=== PATIENT | male | born 1945 | race American Indian/Alaskan Native ===

== ENCOUNTER 2016-08-30 07:10 | Day surgery (SDC) | payer MEDICARE, OTHER ==
[2016-08-23 11:21] VITALS: BMI 32.5
[2016-08-30] MEDS ORDERED: Iohexol 240 (50 ml) ONE (07:27)
[2016-08-30] MEDS ORDERED: cefTRIAXone IV 1 gm in Dextros 50 ML IVPB ONE (07:27)
[2016-08-30] MEDS ORDERED: Lidocaine 2% Jelly (Uro-Jet) ONE (07:28)
[2016-08-30] MEDS ORDERED: Lactated Ringer's 1,000 ML IV ONE (07:55)
[2016-08-30] MEDS ORDERED: Propofol 10 mg/ml Inj (20 ML) ONE ×2 (07:57)
[2016-08-30] MEDS ORDERED: Midazolam 2 MG/2 ML VIAL ONE (07:57)
--- NOTE | 2016-08-30 08:41 | PCM.SURG1 ---
Surgeon's Initial Post Op Note - Surgeon's Notes Surgeon: chula khalil Cripple Chaser: none Pre-Operative Diagnosis: hx of bladder ca Operative Findings: abnormal mucosa in bladder and prostate Post-Operative Diagnosis: same Operation Performed: cysto. bilat rtg pyelogram. bladder bx's and fulg. prostatic urethral bx and fulg. eua Specimen/Specimens Removed: urine,. bladdr bx, prostatic urethral bx Estimated Blood Loss: EBL {In ML}: 0 Blood Products Given: N/A Drains Used: No Drains Date of Surgery/Procedure: 08/30/16 Time of Surgery/Procedure: 08:30
[2016-08-30] MEDS ORDERED: HYDROmorphone 0.5 mg/0.5 ml ISec IVP PRN (08:42)
[2016-08-30] MEDS ORDERED: Lactated Ringer's 1,000 ML IV SCH (08:45)
[2016-08-30 09:48] VITALS: RESP 16; O2SAT 99
[2016-08-30 10:42] VITALS: BP 124/60; PULSE 77; TEMP 97.5
--- NOTE | 2016-08-31 12:51 | RAD ---
PROCEDURE: Fluoroscopy up to 1 hr. HISTORY: BLADDER TUMOR COMPARISON: None TECHNIQUE: Standard FINDINGS: Submitted images from the current procedure: 10.0 IMPRESSION: Less than 1 hr fluoroscopic time utilized during performance of the procedure.
--- NOTE | 2016-08-31 12:57 | RAD ---
HISTORY: BLADDER TUMOR COMPARISON: 05/17/2016. FINDINGS: BOWEL: Normal. No obstruction. No free air. BONES: Normal. OTHER FINDINGS: [place] seeds related to brachytherapy identified in the prostate. IMPRESSION: No significant interval change compared to the prior examination(s).
--- NOTE | 2016-09-01 06:58 | OP ---
PROCEDURE DATE: 08/30/2016 UROLOGY OPERATIVE REPORT PREOPERATIVE DIAGNOSES: History of bladder carcinoma. History of prostate carcinoma. POSTOPERATIVE DIAGNOSES: History of bladder carcinoma. History of prostate carcinoma. Abnormal maria del carmen dder mucosa and prostatic urethral mucosa. PROCEDURE: Cystoscopy. Bilateral retrograde pyelogram. Multiple bladder biopsies and fulguration. Prostatic urethral biopsy and fulguration. Exam under anesthesia. DESCRIPTION OF PROCEDURE: The patient was placed in lithotomy position. Anesthesia was provided by the anesthesiologist. Genitalia was prepped and draped sterilely. The patient received perioperativ e antibiotics. A 22-Guy[place] cystoscope sheath was introduced under direct vision. The procedure was performed under video endoscopic control, as well as under fluoroscopic control. The urethra, prostate, and bladder were inspected with 30-degree and 70-degree lenses. FINDINGS: There was no stricture of the anterior urethra. There was evidence of mild prostatic hype rtrophy, which was subocclusive. There was abnormal mucosa involving the prostatic urethra at the bl adder neck and the lateral wall. The bladder was inspected. There was mild bladder trabeculation. There was no bladder tumor. There was no bladder stone. The ureteral orifices were normal in shape and were mildly closer than expect ed to the bladder neck. The bladder was noted to be trabeculated. There was no bladder stone. There are multiple areas of abnormal bladder mucosa. Some were reddened. Some were granular and sli ghtly raised. There was no typical bladder tumor. The areas of abnormal bladder mucosa were biopsied using cold cup biopsy forceps. Each site was labe led and sent separately for pathologic examination. Fulguration was performed with ball electrode an d electrocautery. The area of the abnormal mucosa, involving the prostatic urethra, was similarly biopsied with cold cu p biopsy forceps. Fulguration was performed with ball electrode and electrocautery. The bladder was reinspected with 70-degree lens and confirmed the above findings. Prior to the performance of the biopsies, a retrograde ureteropyelogram was performed. Iodinated con trast dye was instilled via cone-tipped catheter into each ureteral orifice. The kidneys and the ure ters were viewed sequentially. The right retrograde pyelogram was normal without evidence of filling defect or obstruction. The left retrograde pyelogram demonstrated some mild scalloping and mild dilation of the distal urete r. There was no hydronephrosis. There was good drainage on the post-drainage film. The bladder was drained. Cystoscope and sheath were removed. Exam under anesthesia/bimanual examination was performed. There was no abnormal pelvic mass fixation or induration. The patient was returned to the supine position. The patient tolerated the procedure without complication. Sherie Emerson MD cc: [id number] TT: 08/31/2016 08:41:04 jn
== END 2016-08-30 10:56 | disposition home or self-care (01) ==
LOC: C.SDS 07:10
PROVIDERS: ATTEND Urology
DX: N32.89 Other specified disorders of bladder (principal); N36.8 Other specified disorders of urethra; N40.0 Benign prostatic hyperplasia without lower urinary tract symptoms; Z85.46 Personal history of malignant neoplasm of prostate; Z85.51 Personal history of malignant neoplasm of bladder
CPT/HCPCS: 52204; 55899; 74000; 76000; 87086; 88104; 88305; 88342; C1758; J0696; J7120

== ENCOUNTER 2017-08-15 06:50 | Day surgery (SDC) | payer MEDICARE ==
[2016-08-23 11:33] VITALS: BMI 32.5
[2017-08-15] MEDS ORDERED: cefTRIAXone 1 gm 1 GM/100 ML BAG IVPB ONE (09:20)
[2017-08-15] MEDS ORDERED: Lactated Ringer's 1,000 ML IV ONE (09:20)
[2017-08-15] MEDS ORDERED: Lidocaine 2% Jelly (Uro-Jet) ONE (09:21)
[2017-08-15] MEDS ORDERED: Iohexol 240 (50 ml) ONE (09:21)
[2017-08-15] MEDS ORDERED: Propofol 10 mg/ml Inj (20 ML) ONE (09:25)
[2017-08-15] MEDS ORDERED: Midazolam 2 MG/2 ML VIAL ONE (09:25)
[2017-08-15] MEDS ORDERED: Dexamethasone 4 mg/1 ml IVP PRN (10:15)
[2017-08-15] MEDS ORDERED: HYDROmorphone 0.5 mg/0.5 ml ISec IVP PRN (10:15)
--- NOTE | 2017-08-15 11:44 | PCM.SURG1 ---
Surgeon's Initial Post Op Note - Surgeon's Notes Surgeon: Mansi Emerson Telemetry Technician: none Type of Anesthesia: General LMA Pre-Operative Diagnosis: Hx of bladder ca, hx of prostate ca Operative Findings: abnormal mucosa in prostatic urethra Post-Operative Diagnosis: same Operation Performed: cystl. bilat rtg pyelogram. TUR-bx of prostatic urethra Specimen/Specimens Removed: urine. prostatic urethral bx Estimated Blood Loss: EBL {In ML}: 0 Blood Products Given: N/A Post-Op Condition: Good Date of Surgery/Procedure: 08/15/17 Time of Surgery/Procedure: 10:30
[2017-08-15 12:22] VITALS: BP 139/84; PULSE 80; RESP 20; TEMP 97.7; O2SAT 97
--- NOTE | 2017-08-15 18:00 | RAD ---
PROCEDURE: Intraoperative Fluoroscopy. HISTORY: HX BLADDER CA FINDINGS: Fluoroscopic assistance was provided for cystography. Please refer to the operative report from Dr. ALVAREZ, [place]. Total fluoroscopic time (continuous mode) utilized during the procedure 12.7 (seconds). Total exam DLP: (mGy) 2.15
--- NOTE | 2017-08-16 14:17 | RAD ---
PROCEDURE: Retrograde study, unilateral right-sided HISTORY: BLADDER CA COMPARISON: None TECHNIQUE: Standard protocol for this study/examination. FINDINGS: Submitted images from the current procedure: 2.0 IMPRESSION: Less than 1 hr fluoroscopic time utilized during performance of the procedure.
== END 2017-08-15 12:10 | disposition home or self-care (01) ==
LOC: C.SDS 06:50
PROVIDERS: ATTEND Urology
DX: C67.9 Malignant neoplasm of bladder, unspecified (principal); C61 Malignant neoplasm of prostate
CPT/HCPCS: 52005; 74420; 87086; 88104; 88305; A4358; C1758; J0696; J7120

== ENCOUNTER 2018-03-28 07:33 | Day surgery (SDC) | payer MEDICARE ==
[2018-03-17 10:52] VITALS: BMI 34.4
[2018-03-28] MEDS ORDERED: Midazolam 2 MG/2 ML VIAL ONE (08:41)
[2018-03-28] MEDS ORDERED: Propofol 10 mg/ml Inj (20 ML) ONE (08:41)
[2018-03-28] MEDS ORDERED: cefTRIAXone 1 gm 1 GM/100 ML BAG IVPB ONE (08:46)
[2018-03-28] MEDS ORDERED: Lidocaine 2% Jelly (Uro-Jet) ONE (08:46)
[2018-03-28] MEDS ORDERED: Iohexol 240 (50 ml) ONE (08:46)
--- NOTE | 2018-03-28 09:42 | PCM.SURG1 ---
Surgeon's Initial Post Op Note - Surgeon's Notes Surgeon: Mansi Emerson Charging Operator: none Type of Anesthesia: General LMA Pre-Operative Diagnosis: Hx of bladder ca. Hx of prostate ca Operative Findings: same. abnormal bladder mucosa Post-Operative Diagnosis: same Operation Performed: cysto. bilat rtg pyelogram. bladder bx and fulg. EUA Specimen/Specimens Removed: urine. bladder bx Estimated Blood Loss: EBL {In ML}: 0 Blood Products Given: N/A Drains Used: No Drains Post-Op Condition: Good Date of Surgery/Procedure: 03/28/18 Time of Surgery/Procedure: 09:41
[2018-03-28] MEDS ORDERED: HYDROmorphone 0.5 mg/0.5 ml ISec IVP PRN (09:47)
[2018-03-28 11:15] VITALS: RESP 18
[2018-03-28 11:26] VITALS: BP 107/78; PULSE 79; TEMP 97.7; O2SAT 98
--- NOTE | 2018-03-28 13:55 | RAD ---
Date of service: 03/28/2018 HISTORY: BLADDER CA. AND PROSTATE CA. COMPARISON: 08/30/2016 FINDINGS: BOWEL: Normal. No obstruction. No free air. BONES: Normal. OTHER FINDINGS: [place] seeds related to brachytherapy identified in the prostate. IMPRESSION: No significant or acute findings to account for/ related to the clinical presentation. No significant interval change compared to the prior examination(s).
--- NOTE | 2018-03-28 14:00 | RAD ---
Date of service: 03/28/2018 PROCEDURE: Intraoperative Fluoroscopy. HISTORY: BLADDER CA. AND PROSTATE CA. FINDINGS: Fluoroscopic assistance was provided for bilateral retrograde study. Please refer to the operative report from Dr. ALVAREZ, [place]. Total fluoroscopic time (continuous mode) utilized during the procedure 18.0 seconds. Dose report: DLP [id number] (mGy/m2)
--- NOTE | 2018-04-01 23:05 | OP ---
PROCEDURE DATE: 03/28/2018 PREOPERATIVE DIAGNOSES: History of bladder cancer. History of prostate cancer. POSTOPERATIVE DIAGNOSES: History of bladder cancer. History of prostate cancer.. Abnormal bladder mucosa. PROCEDURES: Cystoscopy. Bilateral retrograde ureteropyelogram. Bladder biopsy and fulguration. Exam under anesthesia. OPERATING SURGEON: Sherie Emerson MD PROCEDURE FOLLOWS: The patient received perioperative antibiotics. The patient was placed in lithotomy position. Genitalia was prepped and draped sterilely. Anesthesia was provided by the anesthesiologist. A 22-Welsh cystoscope sheath was introduced under direct vision. Urethra, prostate, and bladder were inspected with 30-degree and 70-degree lenses. FINDINGS: There was no stricture in the anterior urethra. There was evidence of mild inflammation of the prostatic urethra. There was no papillary lesions within the prostatic urethra. There was no bladder neck contracture. There were areas of paleness of the prostatic urethral mucosa as well. The bladder demonstrated no bladder tumor. There was no bladder stone. There was moderate bladder trabeculation. There was an area of erythema located within the bladder which was focal. This area was biopsied with cold cup biopsy forceps. Fulguration was performed with Ball electrode for hemostasis as well as possible tumor control. Occlusive tip retrograde ureteral pyelogram was performed. Iodinated contrast dye was instilled via cone-tip catheter into each ureteral orifice. The ureters and kidneys were viewed sequentially. There was no filling defect or obstruction within the ureters or collecting systems. There was evidence of some scalloping of the distal left ureter. This was stable in appearance compared to previous retrograde pyelogram. There was good drainage noted on the post drainage films. The prostatic seeds were identified within the prostate on further fluoroscopic views. The bladder was reinspected with 70-degree lens to confirm the above findings. The hemostasis was complete. There was no other lesions within the prostate. The bladder was then drained. Cystoscope sheath was removed. Exam under anesthesia was performed. Prostate was supple and smooth, approximately 20-25 g in size, without fixation, induration, or nodularity. There was no abnormal pelvic mass fixation or induration. The patient tolerated the procedure without complication. Sherie Emerson MD
== END 2018-03-28 11:47 | disposition home or self-care (01) ==
LOC: C.SDS 07:33
PROVIDERS: ATTEND Urology
DX: C67.9 Malignant neoplasm of bladder, unspecified (principal); C61 Malignant neoplasm of prostate
CPT/HCPCS: 52005; 52204; 74018; 87086; 88104; 88305; C1758; J0696

== ENCOUNTER 2018-09-25 10:19 | Outpatient (CLI) | payer MEDICARE | END 2018-09-25 10:20 | disposition home or self-care (01) | LOC: C.PAT 10:19 | DX: C67.9 Malignant neoplasm of bladder, unspecified (principal) ==